=== PATIENT | female | born 1955 | race Caucasian/White ===

== ENCOUNTER → 2024-02-03 06:41 | Outpatient (REF) | payer BC, SELFPAY | LOC: HWRAD 06:41 | PROVIDERS: ATTENDING PHYSICIAN Internal Medicine Endocrinology, Diabetes & Metabolism; FAMILY PHYSICIAN Family Medicine | DX: Z87.891 Personal history of nicotine dependence (principal); E04.2 Nontoxic multinodular goiter | CPT/HCPCS: 71271; 76536 ==

== ENCOUNTER → 2024-08-08 06:19 | Outpatient (REF) | payer BC, SELFPAY | LOC: MRI 3T 06:19 | PROVIDERS: ATTENDING PHYSICIAN Family Medicine | DX: R42 Dizziness and giddiness (principal); H93.A9 Pulsatile tinnitus, unspecified ear | CPT/HCPCS: 70553; 93880; A9575 ==

== ENCOUNTER → 2024-11-01 11:15 | Outpatient (REF) | payer BC, SELFPAY | LOC: HWRAD 11:15 | PROVIDERS: ATTENDING PHYSICIAN Family Medicine | DX: R10.9 Unspecified abdominal pain (principal) | CPT/HCPCS: 71101 ==

== ENCOUNTER → 2024-11-13 07:38 | Outpatient (REF) | payer BC, SELFPAY | LOC: HWRAD 07:38 | PROVIDERS: ATTENDING PHYSICIAN Family Medicine | DX: R14.0 Abdominal distension (gaseous) (principal) | CPT/HCPCS: 76830; 76856 ==

== ENCOUNTER → 2025-02-04 07:41 | Outpatient (REF) | payer BC, SELFPAY | LOC: HWRAD 07:41 | PROVIDERS: ATTENDING PHYSICIAN Family Medicine | DX: Z87.891 Personal history of nicotine dependence (principal) | CPT/HCPCS: 71271 ==

== ENCOUNTER → 2025-03-11 13:37 | Outpatient (REF) | payer SELFPAY | LOC: HWRAD 13:37 | PROVIDERS: ATTENDING PHYSICIAN Family Medicine | DX: I25.10 Atherosclerotic heart disease of native coronary artery without angina pectoris (principal); E78.00 Pure hypercholesterolemia, unspecified | CPT/HCPCS: 75571 ==

== ENCOUNTER → 2025-04-04 12:30 | Outpatient (REF) | payer BC, SELFPAY | LOC: MRI 3T 12:30 | PROVIDERS: ATTENDING PHYSICIAN Neurological Surgery; FAMILY PHYSICIAN Family Medicine | DX: D32.9 Benign neoplasm of meninges, unspecified (principal) | CPT/HCPCS: 70553; A9575 ==

== ENCOUNTER → 2025-04-23 06:51 | Outpatient (REF) | payer BC, SELFPAY | LOC: HWRAD 06:51 | PROVIDERS: ATTENDING PHYSICIAN Internal Medicine Endocrinology, Diabetes & Metabolism; FAMILY PHYSICIAN Family Medicine | DX: E04.1 Nontoxic single thyroid nodule (principal) | CPT/HCPCS: 76536 ==